=== PATIENT | female | born 1995 | race Caucasian/White ===

== ENCOUNTER 2022-05-07 17:59 | Emergency (ER) | payer OTHER ==
[~2022-05-07] VITALS: Ht 165.1 cm; Wt 65.9 kg
[2022-05-07 18:05] VITALS: BP 155/100
--- NOTE | 2022-05-07 18:19 | NUR ---
PT TO FREDIS SEGAL
[2022-05-07 18:22] VITALS: BP 155/100
[2022-05-07 18:39] LABS: BASOPHILS # (AUTO) 0.1 K/uL (0.00-0.22); BASOPHILS % (AUTO) 0.7 % (0.0-2.0); EOSINOPHILS # (AUTO) 0.2 K/uL (0-0.4); EOSINOPHILS % (AUTO) 2.1 % (0.0-4.0); HEMATOCRIT 39.9 % (36-48); LYMPHOCYTES # (AUTO) 2.2 K/uL (2.5-16.5); LYMPHOCYTES % (AUTO) 27.2 % (20.5-51.1); MEAN CORPUSCULAR HEMOGLOBIN 33 pg (27-31); MEAN CORPUSCULAR HGB CONC 35 g/dL (33-37); MEAN CORPUSCULAR VOLUME 94.5 fL (80-94); MONOCYTES # (AUTO) 0.5 K/uL (0.8-1.0); MONOCYTES % (AUTO) 6.1 % (1.7-9.3); NEUTROPHILS # (AUTO) 5.3 K/uL (1.8-7.7); NEUTROPHILS % (AUTO) 63.9 % (42.2-75.2); PLATELET COUNT (AUTO) 262 K/uL (140-450); RED BLOOD CELL COUNT(AUTO) 4.22 MIL/uL (4.20-5.40); RED CELL DISTRIBUTION WIDTH 11.9 % (11.6-13.7); WHITE BLOOD COUNT (AUTO) 8.2 K/uL (4.8-10.8)
[2022-05-07 18:58] LABS: ALBUMIN 4.1 g/dL (3.4-5.0); ANION GAP 11.9 (8-16); CARBON DIOXIDE 26.8 mmol/L (21-32); CREATININE 0.9 mg/dL (0.6-1.3); POTASSIUM 3.7 mmol/L (3.5-5.1); TOTAL BILIRUBIN 0.5 mg/dL (0.0-1.0)
--- NOTE | 2022-05-07 20:30 | NUR ---
CALLED PT NO ANSWER
--- NOTE | 2022-05-07 21:05 | NUR ---
PT CALLED NO ANSWER
--- NOTE | 2022-05-07 21:48 | NUR ---
PT CALLED NO ANSWER
--- NOTE | 2022-05-07 22:44 | NUR ---
PT CALLED THREE TIMES NO ANSWER
--- NOTE | 2022-05-07 22:44 | NUR ---
PATIENT LEFT WITHOUT BEING SEEN BY DR. Cage. NO FURTHER CARE PROVIDED FOR PATIENT.
== END 2022-05-07 22:44 | disposition left against medical advice (07) ==
LOC: MED 17:59
DX: R53.1 Weakness (principal); R11.2 Nausea with vomiting, unspecified; Z53.21 Procedure and treatment not carried out due to patient leaving prior to being seen by health care provider
CPT/HCPCS: 36415; 80053; 85025; 93005